=== PATIENT | male | born 1950 | race Caucasian/White ===

== ENCOUNTER 2021-06-26 13:08 | Outpatient (CLI) | payer MEDICARE, OTHER | END 2021-06-26 13:09 | disposition home or self-care (01) | LOC: CSHMRI 13:08 | PROVIDERS: ATTEND Orthopaedic Surgery | DX: S46.012A Strain of muscle(s) and tendon(s) of the rotator cuff of left shoulder, initial encounter (principal); S46.212A Strain of muscle, fascia and tendon of other parts of biceps, left arm, initial encounter; S42.032A Displaced fracture of lateral end of left clavicle, initial encounter for closed fracture; S43.52XA Sprain of left acromioclavicular joint, initial encounter; S43.492A Other sprain of left shoulder joint, initial encounter; S43.082A Other subluxation of left shoulder joint, initial encounter; M94.212 Chondromalacia, left shoulder; M25.712 Osteophyte, left shoulder ==